=== PATIENT | male | born 1995 ===

== ENCOUNTER 2018-07-02 13:35 | Emergency (ER) | payer OTHER ==
[2018-07-02 14:22] VITALS: BP 136/87; RESP 18
[2018-07-02 16:24] LABS: SQUAMOUS EPITHIAL < 1 /hpf (0-5); URINE BACTERIA RARE (<OCC); URINE BILIRUBIN NEGATIVE (NEGATIVE); URINE BLOOD 1+ (NEGATIVE); URINE CLARITY Clear (Clear); URINE COLOR Yellow (YELLOW); URINE GLUCOSE (UA) NORMAL (Normal); URINE LEUKOCYTE ESTERASE NEG Leu/uL (Negative); URINE PROTEIN NEGATIVE (NEGATIVE); URINE UROBILINOGEN NORMAL mg/dL (0.2-1.0)
[2018-07-02] MEDS ORDERED: Sodium Chloride 0.9% 1,000 ML IV STA (16:49)
[2018-07-02] MEDS ORDERED: Sodium Chloride 0.9% 1,000 ML ONE (17:20)
[2018-07-02 17:23] LABS: BASO # 0.1 K/uL (0.0-0.2); BASO % 1.1 % (0.0-2.0); EOS % 0.6 % (0.0-4.0); HEMOGLOBIN 15.3 g/dL (12.0-18.0); LYMPH # 2.1 K/uL (1.0-4.3); LYMPH % 28.1 % (20.0-40.0); MEAN CELL VOLUME 79.7 fL (80.0-94.0); MEAN CORPUSCULAR HEMOGLOBIN 27.1 pg (27.0-31.0); MEAN PLATELET VOLUME 8.8 fL (7.2-11.7); MONO # 0.6 K/uL (0.0-0.8); MONO % 7.9 % (0.0-10.0); NEUT # 4.7 K/uL (1.8-7.0); NEUT % 62.3 % (50.0-75.0); NRBC % 0.1 % (0.0-2.0); RBC 5.63 Mil/uL (4.40-5.90); RED CELL DISTRIBUTION WIDTH 14.6 % (11.5-14.5); WHITE BLOOD COUNT 7.5 K/uL (4.8-10.8)
[2018-07-02 17:43] LABS: ALB/GLOB RATIO 1.5 (1.0-2.1); ALBUMIN 4.5 g/dL (3.5-5.0); ALT/SGPT 10 U/L (21-72); AST/SGOT 38 U/L (17-59); BLOOD UREA NITROGEN 9 mg/dL (9-20); CALCIUM 9.5 mg/dl (8.6-10.4); GFR NON-AFRICAN AMERICAN > 60; LIPASE 45 U/L (23-300)
--- NOTE | 2018-07-02 18:09 | CT ---
PROCEDURE: CT Abdomen and Pelvis without Oral or IV contrast. HISTORY: abd pain COMPARISON: None available. TECHNIQUE: Contiguous axial images of the abdomen and pelvis. No oral or IV contrast administered. Coronal and Sagittal reformats generated and reviewed. Radiation dose: Total exam DLP = 447.58 mGy-cm. This CT exam was performed using one or more of the following dose reduction techniques: Automated exposure control, adjustment of the mA and/or kV according to patient size, and/or use of iterative reconstruction technique. FINDINGS: There is limited evaluation of the solid organs without the administration of IV contrast. LOWER THORAX: No visible consolidation, pleural effusion, or pneumothorax. LIVER: Unremarkable unenhanced appearance. GALLBLADDER AND BILE DUCTS: Unremarkable unenhanced appearance. PANCREAS: Unremarkable unenhanced appearance. SPLEEN: Unremarkable unenhanced appearance. ADRENALS: Unremarkable unenhanced appearance. KIDNEYS AND URETERS: No hydronephrosis or obstructing renal calculus. BLADDER: The urinary bladder appears unremarkable. REPRODUCTIVE: Unremarkable. APPENDIX: The appendix appears within normal limits of caliber. No secondary signs of acute appendicitis. BOWEL: The stomach is nondistended. Lack of oral contrast limits evaluation for bowel pathology. The bowel loops appear within normal limits of caliber without evidence of intestinal obstruction. PERITONEUM: No significant free fluid. No definite free air. LYMPH NODES: No bulky lymphadenopathy identified. VASCULATURE: No aortic aneurysm. BONES: Question diffuse sclerotic appearance of the osseous structures. OTHER FINDINGS: None. IMPRESSION: No acute pathology identified. Question diffuse sclerotic appearance of the osseous structures. Correlate clinically for possibility of metabolic disorders/renal osteodystrophy.
--- NOTE | 2018-07-02 18:17 | C.PDOC ---
History Of Present Illness 22 year old male presents to ED with complaint of left flank pain for the past 2-3 days. Patient denies nausea, vomiting, and diarrhea. Time Seen by Provider: 07/02/18 15:34 Chief Complaint (Nursing): Abdominal Pain History Per: Patient History/Exam Limitations: no limitations Onset/Duration Of Symptoms: Days (2-3) Current Symptoms Are (Timing): Still Present Location Of Pain/Discomfort: Other (left flank pain) Associated Symptoms: denies: Nausea, Vomiting, Diarrhea Exacerbating Factors: None Alleviating Factors: None Past Medical History Reviewed: Historical Data, Nursing Documentation, Vital Signs Vital Signs: Last Vital Signs Temp 99.1 F 07/02/18 14:19 Pulse 72 07/02/18 14:19 Resp 18 07/02/18 14:19 BP 136/87 07/02/18 14:19 Pulse Ox 99 07/02/18 14:19 - Medical History PMH: No Chronic Diseases Surgical History: No Surg Hx Family History: States: No Known Family Hx - Social History Hx Alcohol Use: No Hx Substance Use: No Review Of Systems Constitutional: Negative for: Fever, Chills, Weakness Gastrointestinal: Positive for: Abdominal Pain (left flank pain). Negative for: Nausea, Vomiting, Diarrhea Neurological: Negative for: Weakness, Numbness Physical Exam - Physical Exam Appears: Well, Non-toxic, No Acute Distress Skin: Normal Color, Warm, Dry Head: Atraumatic, Normacephalic Neck: Normal ROM, Supple Chest: Symmetrical, No Deformity Cardiovascular: Rhythm Regular, No Murmur Respiratory: No Accessory Muscle Use, No Rales, No Rhonchi, No Wheezing Gastrointestinal/Abdominal: Soft, No Tenderness Back: CVA Tenderness (left- sided) Extremity: Capillary Refill (<2 seconds) Neurological/Psych: Oriented x3, Normal Speech, Normal Cognition ED Course And Treatment - Laboratory Results Result Diagrams: 07/02/18 17:17 07/02/18 17:17 Lab Results: Total Bilirubin 0.6 mg/dL (0.2-1.3) 07/02/18 17:17 AST 38 U/L (17-59) 07/02/18 17:17 ALT 10 U/L (21-72) L 07/02/18 17:17 Alkaline Phosphatase 99 U/L (38-126) 07/02/18 17:17 Total Protein 7.6 g/dL (6.3-8.3) 07/02/18 17:17 Albumin 4.5 g/dL (3.5-5.0) 07/02/18 17:17 Globulin 3.1 gm/dL (2.2-3.9) 07/02/18 17:17 Albumin/Globulin Ratio 1.5 (1.0-2.1) 07/02/18 17:17 Lipase 45 U/L (23-300) 07/02/18 17:17 Urine Color Yellow (YELLOW) 07/02/18 15:43 Urine Clarity Clear (Clear) 07/02/18 15:43 Urine pH 7.0 (5.0-8.0) 07/02/18 15:43 Ur Specific [place] 1.011 (1.003-1.030) 07/02/18 15:43 Urine Protein Negative mg/dL (NEGATIVE) 07/02/18 15:43 Urine Glucose (UA) Normal mg/dL (Normal) 07/02/18 15:43 Urine Ketones Negative mg/dL (NEGATIVE) 07/02/18 15:43 Urine Blood 1+ (NEGATIVE) H 07/02/18 15:43 Urine Nitrate Negative (NEGATIVE) 07/02/18 15:43 Urine Bilirubin Negative (NEGATIVE) 07/02/18 15:43 Urine Urobilinogen Normal mg/dL (0.2-1.0) 07/02/18 15:43 Ur Leukocyte Esterase Neg Myron/uL (Negative) 07/02/18 15:43 Urine WBC (Auto) < 1 /hpf (0-5) 07/02/18 15:43 Urine RBC (Auto) 6 /hpf (0-3) H 07/02/18 15:43 Ur Squamous Epith Cells < 1 /hpf (0-5) 07/02/18 15:43 Urine Bacteria Rare (<OCC) 07/02/18 15:43 O2 Sat by Pulse Oximetry: 99 (in RA) - CT Scan/US Abdomen/Pelvis CT Other Rad Studies (CT/US): Interpreted By Me, Read By Radiologist CT/US Interpretation: Accession No. : [id number]. Patient Name / ID : JENARO MENG AIMEE / [id number]. Exam Date : 07/02/2018 17:35:48 ( Approved ). Study Comment : Sex / Age : M / 22Y. Creator : Jaja Coley. Dictator : Claudia Gutierres MD. Personnel Specialist : Tobacco Dipper : Claudia Gutierres MD. Approver2 : Report Date : 07/02/2018 17:55:40. My Comment : . PROCEDURE: CT Abdomen and Pelvis without Oral or IV contrast. HISTORY: abd pain. COMPARISON: None available. TECHNIQUE: Contiguous axial images of the abdomen and pelvis. No oral or IV contrast administered. Coronal and Sagittal reformats generated and reviewed. Radiation dose: Total exam DLP = 447.58 mGy-cm. This CT exam was performed using one or more of the following dose reduction techniques: Automated exposure control, adjustment of the mA and/or kV according to patient size, and/or use of iterative reconstruction technique. FINDINGS: There is limited evaluation of the solid organs without the administration of IV contrast. LOWER THORAX: No visible consolidation, pleural effusion, or pneumothorax. LIVER: Unremarkable unenhanced appearance. GALLBLADDER AND BILE DUCTS: Unremarkable unenhanced appearance. PANCREAS: Unremarkable unenhanced appearance. SPLEEN: Unremarkable unenhanced appearance. ADRENALS: Unremarkable unenhanced appea esther. KIDNEYS AND URETERS: No hydronephrosis or obstructing renal calculus. BLADDER: The urinary bladder appears unremarkable. REPRODUCTIVE: Unremarkable. APPENDIX: The appendix appears within normal limits of caliber. No secondary signs of acute appendicitis. BOWEL: The stomach is nondistended. Lack of oral contrast limits evaluation for bowel pathology. The bowel loops appear within normal limits of caliber without evidence of intestinal obstruction. PERITONEUM: No significant free fluid. No definite free air. LYMPH NODES: No bulky lymphadenopathy identified. VASCULATURE: No aortic aneurysm. BONES: Question diffuse sclerotic appearance of the osseous structures. OTHER FINDINGS: None. IMPRESSION: No acute pathology identified. Question diffuse sclerotic appearance of the osseous structures. Correlate clinically for possibility of metabolic disorders/renal osteodystrophy. Progress Note: Patient given Naproxen, Decadron IM, lidoderm, and valium PO. Abdomen/ Pelvis CT ordered for patient. Labs ordered with CMP, CBC, and UA. Patient given IV fluids. UA shows hematuria. Re-evaluation. Patient feels better. Discussed results and plan with patient who expresses understanding. All questions answered and there is agreement with the plan to discharge home with instructions. Patient stable for discharge. Return if symptoms persist or worsen. Disposition - Disposition Referrals: [facility] [Outside] Disposition: HOME/ ROUTINE Disposition Time: 18:15 Condition: STABLE Additional Instructions: Follow up with PMD/Clinic within 1-2 days. Return to ED if feel worse. 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 (Mayra Flores) - Scribe Statement The provider has reviewed the documentation as recorded by the Scribe (Mayra Flores) All medical record entries made by the Scribe were at my direction and personally dictated by me. I have reviewed the chart and agree that the record accurately reflects my personal performance of the history, physical exam, medical decision making, and the department course for this patient. I have also personally directed, reviewed, and agree with the discharge instructions and disposition.
[2018-07-02 19:12] VITALS: PULSE 80; TEMP 98.9
[2018-07-02 21:59] VITALS: O2SAT 99
== END 2018-07-02 19:13 | disposition home or self-care (01) ==
LOC: C.ER 13:35
DX: R10.9 Unspecified abdominal pain (principal)
CPT/HCPCS: 74176; 80053; 81001; 83690; 85025; 96360; 99284; J7030